=== PATIENT | female | born 1950 | race Caucasian/White ===

== ENCOUNTER 2018-09-30 09:25 | Emergency (ER) | payer OTHER ==
[~2018-09-30] VITALS: Ht 162.6 cm; Wt 63.6 kg
[2018-09-30 09:35] VITALS: BP 120/74
[2018-09-30] MEDS ORDERED: PRED50TA PO (10:32)
== END 2018-09-30 11:14 | disposition home or self-care (01) ==
LOC: ER 09:26
DX: L30.9 Dermatitis, unspecified (principal); H57.89 Other specified disorders of eye and adnexa; Z88.5 Allergy status to narcotic agent; Z79.899 Other long term (current) drug therapy
CPT/HCPCS: 99283